=== PATIENT | female | born 1990 | race Asian ===

== ENCOUNTER 2024-01-24 15:13 | Inpatient (IN) ==
[2024-01-24] MEDS ORDERED: Lidocaine 1% VIAL 10 MG/ML 30 ML VIAL INJ PRN (15:29)
[2024-01-24 16:13] LABS: Urine Benzodiazepine Screen None Detected (None Detect); Urine Cannabinoids Screen None Detected (None Detect); Urine Opiates Screen None Detected (None Detect)
[2024-01-24 16:39] LABS: ABS Lymphocytes 1.6 10^3/uL (1.0-4.8); ABS Monocytes 0.6 10^3/uL (0.0-0.9); ABS Neutrophils 6.5 10^3/uL (1.5-7.6); ABS Nucleated RBC 0.01 10^3/ul; Eosinophil % 0.5 %; Hematocrit 36.9 % (35-45); Hemoglobin 12.8 g/dL (11.5-14.3); Mean Corpuscular Hemoglobin 31.2 pg (27-33); Mean Corpuscular Hgb Conc 34.8 g/dL (31-36); Mean Corpuscular Volume 89.6 fL (80-97); Mean Platelet Volume 9.2 fL (7.5-11.2); Nucleated Red Blood Cells % 0.1 %/100WBC (0.0-0.8); Platelet Count 201 10^3/uL (150-450); Red Blood Count 4.11 10^6/uL (3.63-4.92); Red Cell Distribution Width 13.8 % (12-17); White Blood Count 8.8 10^3/uL (3.8-11.8)
[2024-01-24] MEDS: Oxytocin in LR 20,000 MILLI.UNIT/1,000 ML BAG IV SCH (18:10)
[2024-01-24] MEDS: Lactated Ringers 1000 ml BAG 1,000 ML IV SCH (18:11)
[2024-01-24] MEDS: Buffered Lidocaine 1% SYRIN 1 ml INTRADERM ONE (18:57)
[2024-01-24] MEDS ORDERED: Glycerin ADULT 2.4 gm SUPP PR PRN (20:35)
[2024-01-24] MEDS ORDERED: Lactated Ringers 1000 ml BAG 1,000 ML IV SCH (21:00)
[2024-01-24] MEDS: Dibucaine 1% OINT 28.35 GM TUBE PR PRN (21:26)
[2024-01-24] MEDS: Witch Hazel PAD JAR TOPICAL PRN (21:26)
[2024-01-25] MEDS: Oxytocin in LR 20,000 MILLI.UNIT/1,000 ML BAG IV SCH (00:10)
[2024-01-25] MEDS: Lactated Ringers 1000 ml BAG 1,000 ML IV ONE (06:27)
[2024-01-25 06:47] LABS: ABS Lymphocytes 1.8 10^3/uL (1.0-4.8); ABS Monocytes 0.7 10^3/uL (0.0-0.9); ABS Neutrophils 9.9 10^3/uL (1.5-7.6); ABS Nucleated RBC 0.01 10^3/ul; Eosinophil % 0.3 %; Hematocrit 34.8 % (35-45); Hemoglobin 11.9 g/dL (11.5-14.3); Lymphocyte % 14.6 %; Mean Corpuscular Hemoglobin 31.1 pg (27-33); Mean Corpuscular Hgb Conc 34.3 g/dL (31-36); Mean Corpuscular Volume 90.6 fL (80-97); Mean Platelet Volume 8.8 fL (7.5-11.2); Nucleated Red Blood Cells % 0.1 %/100WBC (0.0-0.8); Platelet Count 167 10^3/uL (150-450); Red Blood Count 3.84 10^6/uL (3.63-4.92); Red Cell Distribution Width 13.6 % (12-17); White Blood Count 12.5 10^3/uL (3.8-11.8)
[2024-01-26 08:25] VITALS: BP 98/70
== END 2024-01-26 10:45 | disposition home or self-care (01) | DRG 807 ==
LOC: MCHOBOUT 15:13 → MCHOB 15:16
PROVIDERS: ADMIT Advanced Practice Midwife; ATTEND Advanced Practice Midwife